=== PATIENT | male | born 1975 | race American Indian/Alaskan Native ===

== ENCOUNTER 2024-01-21 12:16 | Emergency (ER) | payer OTHER, SELFPAY ==
--- NOTE | ~2024-01-21 | CT_ITS ---
EXAMINATION: CT HEAD WITHOUT CONTRAST CLINICAL INFORMATION: Altered mental status COMPARISON: None available. TECHNIQUE: Contiguous axial imaging was performed from the skull base to vertex without intravenous administration of contrast. This CT examination was performed using dose optimization techniques as appropriate, variously including the following: *Automated exposure control *Adjustment of mA and/or kV according to patient size (this includes techniques or standardized protocols for targeted exams where dose is matched to indication/reason for exam; i.e. extremities or head) *Use of iterative reconstruction technique DLP: 650 mGy-cm FINDINGS: Ventricles and sulci are age-appropriate. No evidence of acute intracranial hemorrhage, midline shift, mass effect, acute territorial edematous infarction, significant abnormal parenchymal attenuation or abnormal extra-axial fluid collection. The osseous calvarium is intact. Visualized paranasal sinuses are well-aerated. Bilateral mastoid air cells and middle ear cavities are well-aerated. Calvarial soft tissues are unremarkable. CT/CT head/brain wo IV con IMPRESSION: No acute intracranial pathology.
[2024-01-21 12:29] VITALS: BP 120/64; BP 146/91; PULSE 122; PULSE 150; RESP 16; TEMP 37.3; O2SAT 97; O2SAT 98; BMI 23.0
[2024-01-21 12:33] VITALS: RESP 16
--- NOTE | 2024-01-21 12:36 | ED_ITS ---
HPI - Psych General Chief Complaint: Psychiatric Symptoms Stated Complaint: CRISIS EVAL,STS HE IS [place]RI[place] FROM [employer],[facility] PER EMS Time Seen by Provider: 01/21/24 12:21 Source: patient, EMS and police Mode of arrival: EMS Limitations: altered mental status History of Present Illness ED Provider: Vania MCNAMARA HPI Narrative: This is a 48-year-old male history of PTSD, [place] with grandiose delusions he thinks that he is Barrie and ?part of the equation that Harish Cowan is missing . When he arrives he tells patients in the department that he is here to heal them. He asked me with to place my hand in front of his in order to speak. He is unable to answer questions, on organized speech, appears paranoid. Unable to tell a history. When I asked him if anything hurts he says no. Denies suicidal and homicidal ideation. Says he doesn't use drugs, alcohol, tobacco Related Data Home Medications ?Medication ?Instructions ?Recorded ?Confirmed No Known Home Meds 01/21/24 01/21/24 Allergies Allergy/AdvReac Type Severity Reaction Status Date / Time No Known Allergies Allergy Verified 01/21/24 15:28 Review of Systems 2 Review of Systems: Yes Unobtainable due to mental status PMFSH Past Medical History Attestation statement: The following information was validated with the patient. Source: old records reviewed and nursing notes reviewed Social History Social History Smoked in Last 30 Days: Yes Use of substances other than those prescribed or required for medical reasons: No Advance Directives: No Advance Directives Information Provided: No Physical Exam 2 Vital Signs: Vital Signs: Last Vital Signs Temp 98 F 01/22/24 21:23 Pulse 57 01/22/24 21:23 Resp 16 01/22/24 21:23 BP 130/76 01/22/24 21:23 Pulse Ox 96 01/22/24 21:23 O2 Del Method Room Air 01/22/24 21:23 BMI result Body Mass Index 23.0 Vital signs stable Appearance: Alert.? Oriented X3.? No acute distress.? Unorganized speech. Head: Normocephalic, atraumatic, no step-offs or deformities Eyes: Pupils equal, round and reactive to light.? ENT: Pharynx normal.? Neck: Normal inspection.? Neck supple.? CVS: Normal heart rate and rhythm.? Pulses normal.? Respiratory: No respiratory distress.? Breath sounds normal.? Abdomen: Soft and nontender.? Skin: Skin warm and dry.? Normal skin color.? Normal skin turgor.? Extremities: No lower extremity edema.? No calf ttp. 5/5 strength to bilateral upper and lower extremities Neuro: Oriented X 3.? No motor deficit.? No sensory deficit. CN 2-12 intact Course Reevaluation(s) Reevaluation #1: CBC unremarkable. Chemistry with low potassium 3.2, oral potassium ordered. No other electrolyte abnormalities needing intervention. UA without infection. Urine toxicology positive for marijuana. Negative ethanol. At this time patient will be placed into observation to allow more time to be evaluated by behavioral health team. At time observation was started patient common cooperative no acute distress will continue to monitor Time: 13:27 Reevaluation #2: Physician observation continued. VS stable,no acute events overnight, inpatient bed search at this time. ELIZABETH 01/22/24 245pm Medications Administered Discontinued Medications Generic Name Dose Route Start Last Admin Trade Name Vanesa PRN Reason Stop Dose Admin Lorazepam 2 mg 01/21/24 12:34 01/21/24 12:46 Lorazepam 1 Mg Tablet PO 01/21/24 12:35 Not Given ONCE ONE Potassium Chloride 20 meq 01/21/24 13:26 01/21/24 14:35 Potassium Chloride Packet 20 Meq Packet PO 01/21/24 13:27 20 meq ONCE ONE Administration Medical Decision Making Medical Decision Making [facility] Narrative: 48-year-old male presents with grandiose delusions brought in on a section [employer] by [employer]. Physical exam disorganized thoughts. Otherwise unremarkable. Able to intermittently answer questions appropriately when focused. Sinus tachycardia likely secondary to anxiety/agitation. History and physical exam concerning for grandiose delusions, PTSD, psychosis. Will rule out metabolic derangements. Plan medical clearance evaluation by behavioral health team Differential Diagnosis Differential Diagnoses: The differential diagnosis associated with the presentation includes History and physical exam concerning for grandiose delusions, PTSD, psychosis. Will rule out metabolic derangements. Admission/Observation Consideration of admission/observation: Escalation of care including admission/observation considered No indication Lab Data [facility] Lab Attestation statement: I reviewed the patient's lab results. 01/21/24 13:01 01/22/24 08:44 Labs: Lab Results 01/21/24 01/22/24 01/22/24 Range/Units 13:01 08:44 08:57 WBC 10.9 H (4.8-10.8) X10*3/uL RBC 4.75 (4.60-5.80) X10*6/uL Hgb 14.9 (14.0-18.0) g/dl Hct 42.1 (42.0-52.0) % MCV 88.6 (80.0-98.0) fL MCH 31.4 (27.0-33.0) pg MCHC 35.4 (31.0-36.0) g/dl RDW 13.0 (11.0-16.0) % Plt Count 326 (160-400) X10*3/uL MPV 9.6 (9.4-12.4) fL Immature Gran % (Auto) 0.4 (0.0-0.4) % Neut % (Auto) 71.0 (45-73) % Lymph % (Auto) 18.5 L (20-40) % [place] % (Auto) 9.0 (2-11) % Eos % (Auto) 0.4 (0-4) % Baso % (Auto) 0.7 (0-2) % Lymph # (Auto) 2.0 (1.2-4.9) X10*3/uL [place] # (Auto) 1.0 (0.1-1.2) X10*3/uL Eos # (Auto) 0.0 (0.0-0.4) X10*3/uL Baso # (Auto) 0.1 (0.0-0.2) X10*3/uL Abs Immat Gran (auto) 0.04 H (0.00-0.03) X10*3/uL Absolute Neuts (auto) 7.8 (2.0-8.3) x10*3/uL Absolute Nucleated RBC 0.000 (0.0-0.012) X10*3/uL Nucleated RBC % (auto) 0.0 (0.0-0.2) /100WBC Sodium 136 137 (135-145) mmol/L Potassium 3.2 L 3.4 (3.3-5.1) mmol/L Chloride 99 100 (96-108) mmol/L Carbon Dioxide 24 27 (22-29) mmol/L Anion Gap 16 13 (12-20) BUN 11 15 (9-16) mg/dL Creatinine 1.38 0.89 (0.5-1.4) mg/dL Estim Creat Clear Calc 53.2 82.5 Estimated GFR 55 > 60 Random Glucose 154 H 104 (60-115) mg/dL Calcium 10.3 H 9.7 (8.4-10.2) mg/dL Total Bilirubin 0.8 (0.0-1.0) mg/dL AST 13 (5-37) U/L ALT 9 (0-40) U/L Alkaline Phosphatase 107 (39-117) U/L Total Protein 8.1 H (6.5-8.0) g/dL Albumin 4.9 (3.5-5.0) g/dL TSH 0.53 (0.32-4.0) uIU/mL Urine Color Dark Yellow Urine Appearance Cloudy Urine pH 6.0 (5.0-9.0) Ur Specific [place] 1.020 (1.005-1.025) Urine Protein 30 (1+) H (Neg-Trace) mg/dL Urine Glucose (UA) Negative (Negative) mg/dL Urine Ketones Trace (Negative) mg/dL Urine Blood Negative (Negative) Urine Nitrite Negative (Negative) Ur Leukocyte Esterase Negative (Negative) Urine RBC 0-2 (0-2) /HPF Urine WBC 0-5 (0-5) /HPF Ur Squamous Epith Cells 3-5 (0-2) /HPF Urine Bacteria None Seen (None Seen) Hyaline Casts 11-20 (0-2) /LPF Urine Opiates Screen Not Detected (Not Detect) Ur Buprenorphine Scrn Not Detected (Not Detect) ng/mL Ur Oxycodone Screen Not Detected (Not Detect) ng/mL Urine Methadone Screen Not Detected (Not Detect) ng/mL Urine Fentanyl Screen Not Detected (Not Detect) Ur Barbiturates Screen Not Detected (Not Detect) Ur Phencyclidine Scrn Not Detected (Not Detect) Ur Amphetamines Screen Not Detected (Not Detect) U Benzodiazepines Scrn Not Detected (Not Detect) Urine Cocaine Screen Not Detected (Not Detect) U Marijuana (THC) Screen POSITIVE H (Not Detect) Ethyl Alcohol < 10 mg/dL Influenza Type A (PCR) NEGATIVE (Negative) Influenza Type B (PCR) NEGATIVE (Negative) RSV RNA Qual (PCR) NEGATIVE (Negative) SARS-CoV-2 RNA (RT-PCR) NEGATIVE (Negative) Independent Interpretation I performed an independent interpretation of an: CT Scan Radiology Impression Discussion of test interpretation with radiology: I have reviewed the radiologist's reading. Radiologist Impression: [address] [address] [address] Scan Report Signed Patient: Martin Garcia MR#: [id number] : 1975 Acct:[id number] Age/Sex: 48 / M ADM Date: 01/21/24 Loc: HO.ED Attending Dr: Ordering Physician: Ifeanyi Cerrato MD Date of Service: 01/22/24 Procedure(s): CT head/brain wo IV con Accession Number(s): [id number] cc: Physician,Unknown ; Ifeanyi Cerrato MD~ EXAMINATION: CT HEAD WITHOUT CONTRAST CLINICAL INFORMATION: Altered mental status COMPARISON: None available. TECHNIQUE: Contiguous axial imaging was performed from the skull base to vertex without intravenous administration of contrast. This CT examination was performed using dose optimization techniques as appropriate, variously including the following: *Automated exposure control *Adjustment of mA and/or kV according to patient size (this includes techniques or standardized protocols for targeted exams where dose is matched to indication/reason for exam; i.e. extremities or head) *Use of iterative reconstruction technique DLP: 650 mGy-cm FINDINGS: Ventricles and sulci are age-appropriate. No evidence of acute intracranial hemorrhage, midline shift, mass effect, acute territorial edematous infarction, significant abnormal parenchymal attenuation or abnormal extra-axial fluid collection. The osseous calvarium is intact. Visualized paranasal sinuses are well-aerated. Bilateral mastoid air cells and middle ear cavities are well-aerated. Calvarial soft tissues are unremarkable. CT/CT head/brain wo IV con IMPRESSION: No acute intracranial pathology. 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
[2024-01-21 13:05] LABS: MANUAL DIFF FLAG NO
--- NOTE | 2024-01-21 13:09 | PC.NURSE ---
Martin is coming in from the community today on a Section 12a issued by the [employer]. Pt is having grandiose delusions that he is a healer, he reports that he is the other half of Harish Keith, what he is missing . Patient believes that he is milagro and that his heart rate is high to keep the anger away. He reports if his heart rate becomes any lower, he will become angry and irrational. Patient is currently pacing around his room in a rhythmic manner. He reports he does this to maintain the peace . patient denies SI/HI/AH/VH Blood work and urine complete
[2024-01-21 13:10] LABS: Appearance Urine Cloudy; Basophils Absolute Auto 0.1 X10*3/uL (0.0-0.2); Basophils Percent Auto 0.7 % (0-2); Color Urine Dark Yellow; Eosinophils Percent Auto 0.4 % (0-4); Glucose Urine UA Negative (Negative); Hematocrit 42.1 % (42.0-52.0); Hemoglobin 14.9 g/dl (14.0-18.0); Imm Gran Abs Auto 0.04 X10*3/uL (0.00-0.03); Imm Gran Pct Auto 0.4 % (0.0-0.4); Leukocyte Esterase Urine Negative (Negative); Lymphocytes Percent Auto 18.5 % (20-40); Mean Corpuscular HGB Conc 35.4 g/dl (31.0-36.0); Mean Corpuscular Hemoglobin 31.4 pg (27.0-33.0); Mean Corpuscular Volume 88.6 fL (80.0-98.0); Mean Platelet Volume 9.6 fL (9.4-12.4); Neutrophils Absolute Auto 7.8 x10*3/uL (2.0-8.3); Nitrite Urine Negative (Negative); Platelet Count 326 X10*3/uL (160-400); Red Blood Count 4.75 X10*6/uL (4.60-5.80); UMIC TRIGGER UACC YES; Urine Blood Negative (Negative); Urine Ketones Trace mg/dL (Negative); Urine Protein 30 (1+) mg/dL (Neg-Trace); White Blood Count 10.9 X10*3/uL (4.8-10.8)
[2024-01-21 13:17] LABS: Amphetamine Screen Urine Not Detected (Not Detect); Barbiturates, Urine Not Detected (Not Detect); Benzodiazepines Screen Urine Not Detected (Not Detect); Buprenorphine Scr Not Detected (Not Detect); Cannabinoid Screen Urine POSITIVE (Not Detect); Cocaine Screen Urine Not Detected (Not Detect); Fentanyl, urine Not Detected (Not Detect); Methadone Screen, Urine Not Detected (Not Detect); Opiate Screen Urine Not Detected (Not Detect); Oxycodone Screen Urine Not Detected (Not Detect); Phencyclidine Screen Urine Not Detected (Not Detect)
[2024-01-21 13:24] LABS: Alanine Aminotransferase 9 U/L (0-40); Albumin Level 4.9 g/dL (3.5-5.0); Alkaline Phosphatase 107 U/L (39-117); Anion Gap 16 (12-20); Aspartate Amino Transferase 13 U/L (5-37); Bilirubin Total 0.8 mg/dL (0.0-1.0); Blood Urea Nitrogen 11 mg/dL (9-16); Calcium 10.3 mg/dL (8.4-10.2); Carbon Dioxide 24 mmol/L (22-29); Chloride 99 mmol/L (96-108); Creatinine Clr Calc Pharmacy 53.2; Estimated Glomerular Filt Rate 55; Ethanol < 10 mg/dL; Glucose Random 154 mg/dL (60-115); Potassium 3.2 mmol/L (3.3-5.1); Sodium 136 mmol/L (135-145); Total Protein 8.1 g/dL (6.5-8.0)
[2024-01-21 13:34] LABS: Bacteria Urine None Seen (None Seen); RBC Urine 0-2 /HPF (0-2); WBC Urine 0-5 /HPF (0-5)
[2024-01-21] MEDS: Potassium Chloride Packet 20 MEQ PACKET PO (14:35)
--- NOTE | 2024-01-21 15:28 | PC.NURSE ---
patient reports he takes no home medications
[2024-01-21 15:33] VITALS: BP 134/68; PULSE 88
--- NOTE | 2024-01-21 18:08 | PC.NURSE ---
RE: belongings Patient requested his mother take home his belongings. Pts mother took wallet, exterior designer, phone, watch and clothes home Boots left in locker 9
--- NOTE | 2024-01-22 | ECG_ITS ---
Test Reason : check QT Blood Pressure : / mmHG Vent. Rate : 062 BPM Atrial Rate : 062 BPM P-R Int : 152 ms QRS Dur : 096 ms QT Int : 418 ms P-R-T Axes : 090 064 071 degrees QTc Int : 424 ms Normal sinus rhythm Normal ECG No previous ECGs available Referred By: Generic ED Physician Electronically Signed By:Cheikh Montero
--- NOTE | 2024-01-22 05:46 | PC.NURSE ---
Patient slept intermittently, no distress observed/reported, no behavior and safety concerns at this time, patient is currently not on any medication, disposition per care team is section 12 inpatient bed search, VSS, will continue to monitor
[2024-01-22 06:06] VITALS: BP 127/72; PULSE 67; RESP 16; TEMP 36.4; O2SAT 100
--- NOTE | 2024-01-22 07:27 | PC.NURSE ---
Assumed care of patient at 0645, patient appears to be in no apparent distress this am, ambulating independently with steady gait around BH 3. Patient denies pain, or complaints this am. Continue plan of care for inpatient bedsearch
[2024-01-22 09:42] LABS: Thyroid Stimulating Hormone 0.53 uIU/mL (0.32-4.0)
[2024-01-22 09:46] LABS: Influenza A PCR NEGATIVE (Negative); Influenza B PCR NEGATIVE (Negative); Resp Syncy Virus RNA Qual PCR NEGATIVE (Negative); SARS COV2 PCR INHOUSE NEGATIVE (Negative)
[2024-01-22 10:00] LABS: Anion Gap 13 (12-20); Blood Urea Nitrogen 15 mg/dL (9-16); Calcium 9.7 mg/dL (8.4-10.2); Carbon Dioxide 27 mmol/L (22-29); Chloride 100 mmol/L (96-108); Creatinine Clr Calc Pharmacy 82.5; Estimated Glomerular Filt Rate > 60; Glucose Random 104 mg/dL (60-115); Potassium 3.4 mmol/L (3.3-5.1); Sodium 137 mmol/L (135-145)
[2024-01-22 13:49] VITALS: RESP 16
[2024-01-22 21:23] VITALS: BP 130/76; PULSE 57; RESP 16; TEMP 36.6; O2SAT 96
--- NOTE | 2024-01-22 21:24 | MHC.CARE ---
Pt was accepted to [facility] for tonight 01/21. Accepting is Dr. Simpson. Pickup for 10pm no N2N required
[2024-01-22 22:01] VITALS: BP 122/66; PULSE 61; RESP 16; TEMP 36.6; O2SAT 97
== END 2024-01-22 22:03 ==
PROVIDERS: Emergency Provider Emergency Medicine
DX: F22 Delusional disorders (principal); R00.0 Tachycardia, unspecified; F43.10 Post-traumatic stress disorder, unspecified; Z65.3 Problems related to other legal circumstances; Z03.818 Encounter for observation for suspected exposure to other biological agents ruled out
CPT/HCPCS: 0241U; 36415; 70450; 80048; 80053; 80307; 81001; 84443; 85025; 93005; 99285; S9485

== ENCOUNTER → 2024-01-22 08:49 | Outpatient (BNV) | payer OTHER, SELFPAY | PROVIDERS: Emergency Provider Emergency Medicine; Visit Provider Internal Medicine Cardiovascular Disease | DX: I45.81 Long QT syndrome (principal) | CPT/HCPCS: 93010 ==